=== PATIENT | female | born 1990 | race American Indian/Alaskan Native ===

== ENCOUNTER 2016-12-10 18:13 | Emergency (ER) | payer SELFPAY | END 2016-12-10 19:07 | disposition left against medical advice (07) | LOC: DL.ED 18:13 | DX: Z53.21 Procedure and treatment not carried out due to patient leaving prior to being seen by health care provider (principal) ==

== ENCOUNTER 2017-06-27 16:21 | Emergency (ER) | payer MEDICAID ==
[2017-06-27 16:31] VITALS: BP 126/76
[2017-06-27] MEDS ORDERED: Bacitracin Oint 1 GM U/D Packet TOP ONE (17:02)
[2017-06-27] MEDS ORDERED: Silver Sulfadiazine 1% Crm 50 GM Tube TOP ONE ×2 (17:07→17:10)
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
== END 2017-06-27 17:22 | disposition home or self-care (01) ==
LOC: DL.ED 16:21
DX: T23.101A Burn of first degree of right hand, unspecified site, initial encounter (principal); L03.113 Cellulitis of right upper limb
CPT/HCPCS: 16000; 99282; A9270